=== PATIENT | female | born 1990 | race Asian ===

== ENCOUNTER 2018-07-03 19:30 | Inpatient (IN) | payer OTHER ==
--- NOTE | 2018-07-03 22:00 | HP ---
Past Medical History - Primary Care Physician PCP:: Jenniffer Pool - Admission Chief Complaint: 28yo P1 @ 40.2 wks with painful contructions, no VB, no LOF, + FM. progressive cervical dialation in EU History of Present Illness: 1. BMI 33 - GCT wnl 2. Asthma 3. Short cervix s/p [place] 04/17/19 History Source: Patient, Medical Record Limitations to Obtaining History: No Limitations - Past Medical History Pulmonary: Yes: Asthma ...: 2 ...Para: 1 ... Weeks Gestation by Dates: 40.2 ...EDC by Dates: 07/01/18 - Past Surgical History Past Surgical History: Yes: None Hx Myomectomy: No Hx Transabdominal Cerclage: No - Smoking History Smoking history: Never smoked Have you smoked in the past 12 months: No - Alcohol/Substance Use Hx Alcohol Use: No History of Substance Use: reports: None - Social History Usual Living Arrangement: Yes: With Spouse, With Significant Other History of Recent Travel: No Home Medications - Allergies Allergies/Adverse Reactions: Allergies Allergy/AdvReac Type Severity Reaction Status Date / Time No Known Allergies Allergy Verified 04/17/18 15:07 - Home Medications Home Medications: Ambulatory Orders Albuterol Sulfate Inhaler - [Ventolin Hfa Inhaler -] 2 inh PO PRN PRN 04/06/15 Vit/Iron Fum/Folic AC [ Tablet] 1 each PO DAILY 04/06/15 Docusate Sodium [Colace -] 100 mg PO DAILY #30 capsule 10/05/15 Ibuprofen [Motrin -] 600 mg PO QID #28 tablet 10/05/15 Family Disease History - Family Disease History Family History: Denies Review of Systems - Review of Systems Constitutional: reports: No Symptoms Eyes: reports: No Symptoms HENT: reports: No Symptoms Neck: reports: No Symptoms Cardiovascular: reports: No Symptoms Respiratory: reports: No Symptoms Gastrointestinal: reports: No Symptoms Genitourinary: reports: Other (Regular painful contructions) Breasts: reports: No Symptoms Reported Musculoskeletal: reports: No Symptoms Integumentary: reports: No Symptoms Neurological: reports: No Symptoms Endocrine: reports: No Symptoms Hematology/Lymphatic: reports: No Symptoms Psychiatric: reports: No Symptoms Physical Exam - Maternity Constitutional: Yes: Well Nourished, No Distress, Calm Eyes: Yes: WNL, Conjunctiva Clear, EOM Intact HENT: Yes: WNL, Atraumatic, Normocephalic Neck: Yes: WNL, Supple, Trachea Midline Cardiovascular: Yes: WNL, Regular Rate and Rhythm Lungs: Clear to auscultation Breast(s): Yes: WNL - Abdominal Exam/OB Fundal Height: 40 Number of Fetuses: Single Presentation: Vertex Contractions: Yes Regularity: Regular Intensity: Moderate Monitor Mode: External Heart Rate (range): 120's Heart Rate Location: Midline Category: I Accelerations: Uniform Decelerations: None - Vaginal Exam/OB Vaginal Bleediing: No Dilatation (cm): 5 Effacement (%): 80 Amniotic Membrane Status: Bulging Station: -1 - Physical Exam Musculoskeletal: Yes: WNL Extremities: Yes: WNL Edema: No Integumentary: Yes: WNL ...Motor Strength: WNL Psychiatric: Yes: WNL, Alert, Oriented - Labs Lab Results: Opos/RI/NR/HIV neg/HepB neg/GCT 128 Hemorrhage Risk Assessment - Risk Factors Medium Risk Factors: Yes: None High Risk Factors: Yes: None Risk Score: 1 Risk Level: Medium Risk Assessment/Plan 28yo P1 @ 40.2 wks in active labor Admit to L&D NPO, IVF does not desire pain management at this point adequate pelvis EFW 7.5lb will monitor progress of labor
[2018-07-03] MEDS ORDERED: DEXTROSE 5%-LACTATED RINGERS 1,000 ML IV SCH (22:15)
[2018-07-04 00:28] LABS: BASO % 0.5 % (0-2.0); EOS % 1.5 % (0-4.5); HEMATOCRIT 36.4 % (32.4-45.2); HEMOGLOBIN 12.7 GM/dL (10.7-15.3); LYMPH % 25.6 % (8-40); MCH 30.1 pg (25.7-33.7); MEAN CELL VOLUME 86.1 fl (80-96); MEAN PLT VOLUME 8.7 fl (7.5-11.1); MONO % 4.6 % (3.8-10.2); NEUT % 67.8 % (42.8-82.8); PLATELET COUNT 281 K/MM3 (134-434); RBC 4.23 M/mm3 (3.60-5.2); WHITE BLOOD COUNT 11.9 K/mm3 (4.0-10.0)
[2018-07-04 00:41] LABS: INR 0.92 (0.83-1.09); PROTHROMBIN TIME (PATIENT) 10.9 SEC (9.7-13.0)
[2018-07-04 00:43] LABS: ACTIVATED PTT 29.6 SECONDS (25.2-36.5)
[2018-07-04] MEDS ORDERED: LIDOCAINE HCL 1% PRESERVATIVE FREE - 30ML VIAL ONE (00:46)
[2018-07-04] MEDS ORDERED: OXYTOCIN 20 UNITS in 0.9% NS 20 UNIT/1,000 ML INFUS.BAG IV ONE ×2 (00:46→02:32)
[2018-07-04 00:50] LABS: ANION GAP 10 MMOL/L (8-16); BLOOD UREA NITROGEN 11 mg/dL (7-18); CALCIUM 8.5 mg/dL (8.5-10.1); CHLORIDE 106 mmol/L (98-107); CO2 20 mmol/L (21-32); CREATININE 0.6 mg/dL (0.55-1.3); GLUCOSE,RANDOM 108 mg/dL (74-106); POTASSIUM 3.7 mmol/L (3.5-5.1); SODIUM 136 mmol/L (136-145)
[2018-07-04] MEDS ORDERED: PROPOFOL 20 ML ONE (01:03)
[2018-07-04] MEDS ORDERED: SUCCINYLCHOLINE CHLORIDE 200 MG/10 ML VIAL ONE (01:03)
[2018-07-04] MEDS ORDERED: IBUPROFEN 800 MG/8 ML IJ IVPB ONE ×2 (01:46→01:53)
[2018-07-04] MEDS ORDERED: METHYLERGONOVINE MALEATE 0.2 MG/1 ML AMP IM PRN (01:52)
[2018-07-04] MEDS ORDERED: BISACODYL 10 MG SUPP.RECT RC PRN (01:52)
[2018-07-04] MEDS ORDERED: BENZOCAINE 28 GM HEMORRHOIDAL OINTMENT TP PRN (01:52)
[2018-07-04] MEDS ORDERED: BENZOCAINE 20% 57 GM BOTTLE TP PRN (01:52)
[2018-07-04] MEDS ORDERED: WITCH HAZEL 50% (TUCKS) 40 PAD/JAR PAD TP PRN (01:52)
[2018-07-04] MEDS ORDERED: OXYTOCIN 20 UNITS in 0.9% NS 20 UNIT/1,000 ML INFUS.BAG IV SCH (02:00)
--- NOTE | 2018-07-04 02:04 | PN ---
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 Present: No Infant Gender: Male Position: Right - 1 Minute Total Score: 8 5 Minutes Total Score: 9 - [place] Feeding Plan Initial Plan: Exclusive throughout hospitalization Benefits of Exclusively reinforced: Yes Remarks - Remarks Remarks: heart rate deceleration down to 70 noted Asked to open OR once vertex was at +2 station [employer] soft cup vaccuum was applied as per patient request baby's head was delivered without difficulty after 1 pop off with second pull cord around the neck was reduced shoulders delivered without difficulty pediatric nurses present at the delivery head examined, no anton found, no cephalohematoma noted
[2018-07-04 02:17] LABS: VENOUS PC02 59.6 mmHg (38-52); VENOUS PO2 22.2 mmHg (28-48)
[2018-07-04 02:32] LABS: VENOUS PH 7.15 (7.32-7.42)
[2018-07-04 02:33] LABS: ARTERIAL BLOOD GAS pH 7.15 (7.35-7.45)
[2018-07-04 02:34] LABS: ARTERIAL BLD GAS O2 SATURATION 32.4 % (90-98.9); ARTERIAL BLOOD GAS PCO2 61.2 mmHg (35-45); ARTERIAL BLOOD GAS PO2 24.1 mmHg (80-100)
[2018-07-04 02:35] LABS: ARTERIAL BLOOD GAS BASE EXCESS -10.1 meq/l (-2-2)
[2018-07-04 02:51] VITALS: BMI 38.0
[2018-07-04] MEDS: ACETAMINOPHEN 325 MG TABLET (FP) PO PRN ×3 (07:40→20:28)
[2018-07-04] MEDS: IBUPROFEN 600 MG TABLET (FP) PO PRN ×3 (07:40→20:28)
[2018-07-04] MEDS: FERROUS SO4 325 MG TABLET (FP) PO SCH ×2 (09:10→17:39)
[2018-07-04] MEDS: PRENATAL VITAMINS W/ FOLIC ACID TABLET (FP) PO SCH (09:10)
[2018-07-05] MEDS: IBUPROFEN 600 MG TABLET (FP) PO PRN ×3 (03:59→14:57)
[2018-07-05] MEDS: ACETAMINOPHEN 325 MG TABLET (FP) PO PRN ×3 (03:59→14:58)
[2018-07-05 07:39] LABS: BASO % 0.6 % (0-2.0); EOS % 1.3 % (0-4.5); HEMATOCRIT 32.8 % (32.4-45.2); HEMOGLOBIN 11.2 GM/dL (10.7-15.3); LYMPH % 26.3 % (8-40); MCH 29.5 pg (25.7-33.7); MCHC 34.2 g/dl (32.0-36.0); MEAN CELL VOLUME 86.3 fl (80-96); MEAN PLT VOLUME 7.9 fl (7.5-11.1); MONO % 5.4 % (3.8-10.2); NEUT % 66.4 % (42.8-82.8); PLATELET COUNT 260 K/MM3 (134-434); RDW 14.4 % (11.6-15.6)
--- NOTE | 2018-07-05 08:51 | PN ---
Post Progress Note - Subjective Subjective: Patient without acute complaints. Reports tolerating oral intake without nausea or vomiting. Ambulating without dizziness. Denies fevers or chills. Pain well controlled with oral pain medication. without difficulty. Passing flatus. Post Day: 1 Type of Delivery: Vital Signs: Vital Signs Temperature 98.4 F 07/04/18 20:31 Pulse Rate 78 07/04/18 20:31 Respiratory Rate 20 07/04/18 20:31 Blood Pressure 120/76 07/04/18 20:31 O2 Sat by Pulse Oximetry (%) Breast Exam: Yes: Soft Uterus: Yes: Fundus Firm Abdomen/GI: Yes: Passing flatus, Tolerating PO Lochia: Yes: Rubra Lochia, amount: Small Extremities: Yes: Calves non-tender Perineum: Yes: Episiotomy Activity: Ambulating - Labs Labs: CBC WBC 11.0 K/mm3 (4.0-10.0) H 07/05/18 07:15 RBC 3.80 M/mm3 (3.60-5.2) 07/05/18 07:15 Hgb 11.2 GM/dL (10.7-15.3) 07/05/18 07:15 Hct 32.8 % (32.4-45.2) 07/05/18 07:15 MCV 86.3 fl (80-96) 07/05/18 07:15 MCH 29.5 pg (25.7-33.7) 07/05/18 07:15 MCHC 34.2 g/dl (32.0-36.0) 07/05/18 07:15 RDW 14.4 % (11.6-15.6) 07/05/18 07:15 Plt Count 260 K/MM3 (134-434) 07/05/18 07:15 MPV 7.9 fl (7.5-11.1) 07/05/18 07:15 Absolute Neuts (auto) 7.3 K/mm3 (1.5-8.0) 07/05/18 07:15 Neutrophils % 66.4 % (42.8-82.8) 07/05/18 07:15 Lymphocytes % 26.3 % (8-40) 07/05/18 07:15 Monocytes % 5.4 % (3.8-10.2) 07/05/18 07:15 Eosinophils % 1.3 % (0-4.5) 07/05/18 07:15 Basophils % 0.6 % (0-2.0) 07/05/18 07:15 Nucleated RBC % 0 % (0-0) 07/05/18 07:15 Assessment/Plan 28yo P2 s/p Vacuum assisted VD VSS, Afebrile Doing well Rh pos no need for Rhogam Baby boy for Circumcision\ Plan to D/C in am
[2018-07-05] MEDS: FERROUS SO4 325 MG TABLET (FP) PO SCH ×2 (09:25→17:55)
[2018-07-05] MEDS: PRENATAL VITAMINS W/ FOLIC ACID TABLET (FP) PO SCH (09:25)
--- NOTE | 2018-07-05 12:39 | DS ---
Physical Exam-LINE SUPPLY Vital Signs: Vital Signs Temperature 98.6 F 07/05/18 09:00 Pulse Rate 72 07/05/18 09:00 Respiratory Rate 18 07/05/18 09:00 Blood Pressure 116/82 07/05/18 09:00 O2 Sat by Pulse Oximetry (%) Constitutional: Yes: Well Nourished, No Distress, Calm Eyes: Yes: WNL, Conjunctiva Clear, EOM Intact HENT: Yes: WNL, Atraumatic, Normocephalic Neck: Yes: WNL, Supple, Trachea Midline Cardiovascular: Yes: WNL, Regular Rate and Rhythm Respiratory: Yes: WNL, Regular, CTA Bilaterally Gastrointestinal: Yes: WNL, Normal Bowel Sounds, Soft Renal/: Yes: WNL Pelvis: Yes: WNL Vaginal Exam: Yes: Normal Uterus: Yes: Firm ....Post : Yes: Uterus firm, Uterus non-tender Breast(s): Yes: WNL Musculoskeletal: Yes: WNL Extremities: Yes: WNL Edema: No Integumentary: Yes: WNL Wound/Incision: Yes: Clean/Dry, Well Approximated Neurological: Yes: WNL, Alert, Oriented ...Motor Strength: WNL Psychiatric: Yes: WNL, Alert Labs: CBC, BMP 07/05/18 07:15 07/03/18 23:30 Delivery - Delivery Vaginal Delivery: Vacuum Assist Type of Anesthesia: Local Episiotomy/Laceration: Midline, 2nd degree EBL (cc): 300 Delivery, Single - Stages of Labor Date 1st Stage Initiatied: 07/03/18 Time 1st Stage Initiated: 16:00 Date 2nd Stage Initiated: 07/04/18 Time 2nd Stage Initiated: 00:45 Date of Delivery: 07/04/18 Time of Delivery: 01:10 Time Placenta Delivered: 01:15 Placenta: Yes: Spontaneous - Condition of Infant Rn Research/Proofer Present: No Gender: Male Weight: 7 lb 4 oz Position: Right Total Hours ROM (Hrs/Mins): 35 MINUTES - 1 Minute Total Score: 8 5 Minutes Total Score: 9 - Feeding Plan Initial Plan: Exclusive throughout hospitalization Benefits of Exclusively reinforced: Yes Remarks - Remarks Remarks: heart rate deceleration down to 70 noted Asked to open OR once vertex was at +2 station KiWi soft cup vaccuum was applied as per patient request baby's head was delivered without difficulty after 1 pop off with second pull cord around the neck was reduced shoulders delivered without difficulty pediatric nurses present at the delivery head examined, no anton found, no cephalohematoma noted Discharge Summary Reason For Visit: LABOR Procedures: Principal: Vaccuum assisted vaginal delivery Other Procedures: penile circumcision Hospital Course: Unremarcable Condition: Good - Instructions Diet, Activity, Other Instructions: Regular Referrals: Lauro Hyman MD [Staff Physician] - Disposition: HOME - Home Medications Comprehensive Discharge Medication List: Ambulatory Orders Albuterol Sulfate Inhaler - [Ventolin Hfa Inhaler -] 2 inh PO PRN PRN 04/06/15 Vit/Iron Fum/Folic AC [ Tablet] 1 each PO DAILY 04/06/15 Docusate Sodium [Colace -] 100 mg PO DAILY #30 capsule 10/05/15 Ibuprofen [Motrin -] 600 mg PO QID #28 tablet 10/05/15
[2018-07-05] MEDS ORDERED: SENNOSIDES/DOCUSATE COMBO (SENNA PLUS) TABLET (UD) PO PRN (22:00)
[2018-07-06] MEDS: ACETAMINOPHEN 325 MG TABLET (FP) PO PRN ×2 (00:07→09:06)
[2018-07-06] MEDS: IBUPROFEN 600 MG TABLET (FP) PO PRN ×2 (00:07→09:05)
[2018-07-06] MEDS: FERROUS SO4 325 MG TABLET (FP) PO SCH (08:43)
[2018-07-06] MEDS: PRENATAL VITAMINS W/ FOLIC ACID TABLET (FP) PO SCH (09:05)
--- NOTE | 2018-07-06 09:46 | PN ---
Post Progress Note - Subjective Subjective: Patient without acute complaints. Reports tolerating oral intake without nausea or vomiting. Ambulating without dizziness. Denies fevers or chills. Pain well controlled with oral pain medication. without difficulty. Passing flatus. Post Day: 2 Type of Delivery: Vital Signs: Vital Signs Temperature 98.4 F 07/06/18 00:11 Pulse Rate 72 07/06/18 00:11 Respiratory Rate 0 L 07/06/18 00:11 Blood Pressure 136/79 07/06/18 00:11 O2 Sat by Pulse Oximetry (%) Breast Exam: Yes: Soft Uterus: Yes: Fundus Firm Abdomen/GI: Yes: Abdomen soft Lochia: Yes: Rubra Lochia, amount: Small Extremities: Yes: Calves non-tender Perineum: Yes: Episiotomy (healing well) Activity: Ambulating - Labs Labs: CBC WBC 11.0 K/mm3 (4.0-10.0) H 07/05/18 07:15 RBC 3.80 M/mm3 (3.60-5.2) 07/05/18 07:15 Hgb 11.2 GM/dL (10.7-15.3) 07/05/18 07:15 Hct 32.8 % (32.4-45.2) 07/05/18 07:15 MCV 86.3 fl (80-96) 07/05/18 07:15 MCH 29.5 pg (25.7-33.7) 07/05/18 07:15 MCHC 34.2 g/dl (32.0-36.0) 07/05/18 07:15 RDW 14.4 % (11.6-15.6) 07/05/18 07:15 Plt Count 260 K/MM3 (134-434) 07/05/18 07:15 MPV 7.9 fl (7.5-11.1) 07/05/18 07:15 Absolute Neuts (auto) 7.3 K/mm3 (1.5-8.0) 07/05/18 07:15 Neutrophils % 66.4 % (42.8-82.8) 07/05/18 07:15 Lymphocytes % 26.3 % (8-40) 07/05/18 07:15 Monocytes % 5.4 % (3.8-10.2) 07/05/18 07:15 Eosinophils % 1.3 % (0-4.5) 07/05/18 07:15 Basophils % 0.6 % (0-2.0) 07/05/18 07:15 Nucleated RBC % 0 % (0-0) 07/05/18 07:15 Assessment/Plan 28yo P2 s/p Vacuum assisted VD VSS, Afebrile Doing well Rh pos no need for Rhogam Baby boy s/p Circumcision Plan to D/C in am
[2018-07-06 10:56] VITALS: BP 125/70; PULSE 80; TEMP 98.2
== END 2018-07-06 15:00 | disposition home or self-care (01) | DRG 807 ==
LOC: JDEL 19:30 → JLDR 21:10 → J3W 07-04 05:15
PROVIDERS: ADMIT Obstetrics & Gynecology; ATTEND Obstetrics & Gynecology
PROC: 10D07Z6 Extraction of Products of Conception, Vacuum, Via Natural or Artificial Opening (ICD-10-PCS; principal; 2018-07-04)
PROC: 0KQM0ZZ Repair Perineum Muscle, Open Approach (ICD-10-PCS; 2018-07-04)
DX: O48.0 Post-term pregnancy (principal); Z37.0 Single live birth; O69.81X0 Labor and delivery complicated by cord around neck, without compression, not applicable or unspecified; O75.89 Other specified complications of labor and delivery; J45.909 Unspecified asthma, uncomplicated; O70.1 Second degree perineal laceration during delivery; Z3A.40 40 weeks gestation of pregnancy
CPT/HCPCS: 36415; 36600; 59409; 80048; 82803; 85025; 85610; 85730; 86593; 86850; 86900; 86901; 87389

== ENCOUNTER 2021-01-19 08:41 | Inpatient (IN) | payer OTHER ==
[2021-01-19] MEDS: ELECTROLYTE-148 SOLN 1,000 ML IV SCH ×2 (09:00→11:07)
[2021-01-19] MEDS ORDERED: PCA PUMP NR ONE (09:46)
[2021-01-19] MEDS ORDERED: FENTANYL/BUPIVACAINE/NS/PF - PCEA - 50 ML DISP.SYRIN EP ONE (09:46)
[2021-01-19 09:56] LABS: BASO % 0.4 % (0-2.0); HEMATOCRIT 33.9 % (32.4-45.2); HEMOGLOBIN 11.8 GM/dL (10.7-15.3); LYMPH % 19.7 % (8-40); MCH 29.4 pg (25.7-33.7); MCHC 34.8 g/dl (32.0-36.0); MEAN CELL VOLUME 84.6 fl (80-96); MEAN PLT VOLUME 7.7 fl (7.5-11.1); MONO % 4.3 % (3.8-10.2); NEUT % 74.6 % (42.8-82.8); PLATELET COUNT 244 10^3/uL (134-434); RDW 14.2 % (11.6-15.6); WHITE BLOOD COUNT 9.2 K/mm3 (4.0-10.0)
[2021-01-19] MEDS ORDERED: OXYTOCIN 20 UNITS in 0.9% NS 20 UNIT/1,000 ML INFUS.BAG IV ONE ×2 (09:56→15:19)
[2021-01-19 10:01] LABS: INR 0.91 (0.83-1.09)
[2021-01-19] MEDS ORDERED: BUPIVACAINE HCL/PF 0.25% (2.5MG/ML) 10 ML VIAL ONE (10:15)
[2021-01-19 10:16] LABS: CALCIUM 8.2 mg/dL (8.5-10.1)
[2021-01-19 10:19] LABS: CREATININE 0.6 mg/dL (0.55-1.3)
[2021-01-19] MEDS: FENTANYL/BUPIVACAINE/NS/PF - PCEA - 50 ML DISP.SYRIN EP SCH (10:30)
[2021-01-19] MEDS ORDERED: NALOXONE HCL 0.4 MG/ML VIAL IVPUSH PRN (10:51)
[2021-01-19 11:05] VITALS: BMI 39.3
[2021-01-19 11:11] LABS: HIV INTERPRETATION NEGATIVE (NEGATIVE)
[2021-01-19] MEDS ORDERED: METHYLERGONOVINE MALEATE 0.2 MG/1 ML AMP IM PRN (14:05)
[2021-01-19] MEDS ORDERED: WITCH HAZEL 50% (TUCKS) 40 PAD/JAR PAD TP PRN (14:05)
[2021-01-19] MEDS ORDERED: ACETAMINOPHEN 325 MG TABLET (FP) PO PRN (14:05)
[2021-01-19] MEDS ORDERED: BISACODYL 10 MG SUPP.RECT RC PRN (14:05)
[2021-01-19] MEDS ORDERED: BENZOCAINE 20% 57 GM BOTTLE TP PRN (14:05)
[2021-01-19] MEDS ORDERED: BENZOCAINE 28 GM HEMORRHOIDAL OINTMENT TP PRN (14:05)
[2021-01-19] MEDS ORDERED: OXYTOCIN 20 UNITS in 0.9% NS 20 UNIT/1,000 ML INFUS.BAG IV SCH (14:15)
[2021-01-19 15:16] LABS: CORD BASE EXCESS -6.1 mmol/L (0-2); CORD PCO2 47.2 mmHg (30-78); CORD pH 7.266 (7.14-7.44)
[2021-01-19 15:17] LABS: CORD BASE EXCESS -7.3 mmol/L (0-2); CORD HCO3 20.6 mmHg (20-29); CORD PCO2 51.3 mmHg (30-78); CORD pH 7.222 (7.14-7.44)
[2021-01-19] MEDS ORDERED: IBUPROFEN 600 MG TABLET (FP) PO ONE (16:09)
[2021-01-19] MEDS: IBUPROFEN 600 MG TABLET (FP) PO PRN ×2 (16:10→23:09)
[2021-01-19] MEDS: FERROUS SO4 325 MG TABLET (FP) PO SCH (18:29)
[2021-01-20] MEDS: IBUPROFEN 600 MG TABLET (FP) PO PRN ×4 (04:54→22:30)
[2021-01-20 08:42] LABS: BASO % 0.4 % (0-2.0); EOS % 1.4 % (0-4.5); HEMATOCRIT 33.3 % (32.4-45.2); HEMOGLOBIN 11.5 GM/dL (10.7-15.3); LYMPH % 24.9 % (8-40); MCH 29.5 pg (25.7-33.7); MCHC 34.5 g/dl (32.0-36.0); MEAN CELL VOLUME 85.6 fl (80-96); MEAN PLT VOLUME 7.8 fl (7.5-11.1); MONO % 5.9 % (3.8-10.2); NEUT % 67.4 % (42.8-82.8); PLATELET COUNT 218 10^3/uL (134-434); RBC 3.88 M/mm3 (3.60-5.2); RDW 14.2 % (11.6-15.6); WHITE BLOOD COUNT 9.6 K/mm3 (4.0-10.0)
[2021-01-20] MEDS: FERROUS SO4 325 MG TABLET (FP) PO SCH ×2 (08:54→18:28)
[2021-01-20] MEDS: PRENATAL VITAMINS W/ FOLIC ACID TABLET (FP) PO SCH (09:41)
[2021-01-20] MEDS: ELECTROLYTE-148 SOLN 1,000 ML IV SCH (20:38)
[2021-01-20] MEDS: FENTANYL/BUPIVACAINE/NS/PF - PCEA - 50 ML DISP.SYRIN EP SCH (20:38)
[2021-01-20] MEDS ORDERED: SENNOSIDES/DOCUSATE COMBO (SENNA PLUS) TABLET (UD) PO PRN (22:00)
[2021-01-21] MEDS ORDERED: oxyCODONE HCL 5 MG TABLET ONE (00:08)
[2021-01-21] MEDS ORDERED: oxyCODONE HCL 5 MG TABLET PO PRN (00:17)
[2021-01-21] MEDS ORDERED: ACETAMINOPHEN 325 MG TABLET (FP) PO PRN (00:18)
[2021-01-21] MEDS: FERROUS SO4 325 MG TABLET (FP) PO SCH (08:55)
[2021-01-21] MEDS: IBUPROFEN 600 MG TABLET (FP) PO PRN (09:51)
[2021-01-21] MEDS: PRENATAL VITAMINS W/ FOLIC ACID TABLET (FP) PO SCH (09:51)
[2021-01-21 15:15] VITALS: BP 105/72; PULSE 66; TEMP 98.2
== END 2021-01-21 14:50 | disposition home or self-care (01) | DRG 807 ==
LOC: JLDR 08:41 → J3W 16:20
PROVIDERS: ADMIT Obstetrics & Gynecology; ATTEND Obstetrics & Gynecology
PROC: 10E0XZZ Delivery of Products of Conception, External Approach (ICD-10-PCS; principal; 2021-01-19)
DX: O99.214 Obesity complicating childbirth (principal); Z37.0 Single live birth; E66.9 Obesity, unspecified; Z3A.40 40 weeks gestation of pregnancy; Z87.09 Personal history of other diseases of the respiratory system
CPT/HCPCS: 36415; 36600; 59409; 80048; 82803; 85025; 85610; 85730; 86780; 86850; 86900; 86901; 87389; C9803; U0003; U0005

== ENCOUNTER 2021-12-16 23:09 | Emergency (ER) | payer OTHER ==
[2021-12-16 23:23] VITALS: BP 122/78; PULSE 71; RESP 20; TEMP 97.8; BMI 35.4
[2021-12-17] MEDS ORDERED: AMOXICILLIN 500 MG CAPSULE (FP) PO ONE (00:19)
[2021-12-17] MEDS ORDERED: IBUPROFEN 600 MG TABLET (FP) PO ONE ×2 (00:23→00:24)
[2021-12-17] MEDS ORDERED: AMOXICILLIN 500 MG CAPSULE (FP) ONE (00:24)
== END 2021-12-17 01:32 | disposition home or self-care (01) ==
LOC: JER 23:09
DX: H66.92 Otitis media, unspecified, left ear (principal); H61.22 Impacted cerumen, left ear
CPT/HCPCS: 0241U-QW; 99283-25